=== PATIENT | male | born 1960 | race Caucasian/White ===

== ENCOUNTER 2022-10-04 13:46 | Outpatient (CLI) | payer OTHER, SELFPAY ==
[2022-10-04 15:06] LABS: Amylase* 49 U/L (18-89); Lipase* 69 U/L (23-300)
[2022-10-04 17:18] LABS: Thyroid Stimulating Hormone* 0.543 uIU/mL (0.270-4.20)
== END 2022-10-04 13:47 | disposition home or self-care (01) ==
PROVIDERS: Visit Provider Chiropractor
DX: C25.9 Malignant neoplasm of pancreas, unspecified (principal); E04.9 Nontoxic goiter, unspecified
CPT/HCPCS: 36415; 36591; 82150; 83690; 84439; 84443; 84481

== ENCOUNTER 2022-10-04 14:46 | Outpatient (RCR) | payer OTHER, SELFPAY | END 2023-04-02 23:59 | disposition home or self-care (01) | LOC: CCIC 14:46 | PROVIDERS: Visit Provider Clinical Nurse Specialist | DX: C25.9 Malignant neoplasm of pancreas, unspecified (principal) | CPT/HCPCS: 36591 ==